=== PATIENT | female | born 1950 | race Caucasian/White ===

== ENCOUNTER 2024-05-05 08:21 | Outpatient (RCR) | payer OTHER, SELFPAY ==
[2024-05-05 08:38] VITALS: BP 160/55
[2024-05-05] MEDS: SODIUM BICARBONATE 1150 MEQ IV (09:02)
== END 2024-05-17 23:59 | disposition home or self-care (01) ==
LOC: OID 08:21
PROVIDERS: ATTENDING PHYSICIAN Surgery Vascular Surgery
DX: I71.40 Abdominal aortic aneurysm, without rupture, unspecified (principal); I48.91 Unspecified atrial fibrillation; I50.9 Heart failure, unspecified; Z92.89 Personal history of other medical treatment; Z79.01 Long term (current) use of anticoagulants; Z87.891 Personal history of nicotine dependence
CPT/HCPCS: 96365; 96366

== ENCOUNTER → 2024-05-05 09:29 | Outpatient (REF) | payer OTHER, SELFPAY | LOC: RAD 09:29 | PROVIDERS: ATTENDING PHYSICIAN Surgery Vascular Surgery; FAMILY PHYSICIAN Nurse Practitioner Adult Health | DX: I71.40 Abdominal aortic aneurysm, without rupture, unspecified (principal) | CPT/HCPCS: 74174; Q9967 ==

== ENCOUNTER 2024-07-04 06:09 | Inpatient (IN) | payer OTHER, SELFPAY ==
[2024-06-16 09:37] VITALS: BMI 36.1
[2024-06-16 10:16] LABS: % Basophils 0.6 % (0-2); % Eosinophils 5.8 % (0-6); % Immature Granulocytes 0.3 % (0-0.5); % Monocytes 6.7 % (1.7-9.3); % Neutrophils 63.6 % (42.2-75.2); Absolute Eosinophils 0.4 10^3/uL (0-0.7); Absolute Lymphocytes 1.5 10^3/uL (1.2-3.4); Absolute Monocytes 0.4 10^3/uL (0.1-0.6); Absolute Neutrophils 4.2 10^3/uL (1.4-6.5); Hemoglobin 11.7 g/dL (12.0-16.0); Mean Corp Hgb Conc. 32.5 g/dL (33.0-37.0); Mean Corpuscular Hgb 29.9 pg (27.0-31.0); Mean Corpuscular Volume 92.1 fL (81.0-99.0); Mean Platelet Volume 10.9 fL (7.4-10.4); Nucleated Red Blood Cells % 0 %; Platelet Count 186 10^3/uL (130-400); Red Blood Cell Count 3.91 10^6/uL (4.20-5.40); Red Cell Dist. Width 13.2 % (11.5-14.5); White Blood Cell Count 6.6 10^3/uL (4.8-10.8)
[2024-06-16 10:21] LABS: INR 1.19; PT 14.9 Sec (11.4-14.6)
[2024-06-16 10:22] LABS: APTT 30.1 Sec (23.4-35.0)
[2024-06-16 10:39] LABS: Blood Urea Nitrogen 32 mg/dl (7-17); Calcium 9.5 mg/dl (8.4-10.2); Carbon Dioxide 32 mmol/L (22-30); Chloride 102 mmol/L (98-107); Estimated Creatinine Clearance 51 ml/min; Glucose 96 mg/dl (70-99); Potassium 4.8 mmol/L (3.5-5.1); Sodium 143 mmol/L (135-145)
--- NOTE | 2024-06-26 10:45 | PTCARENOTE ---
Patients 06/16 Creat 1.1; GFR 52.40- Tona @ Dr. Esteban office notified
[2024-07-04] VITALS (9 sets, daily range): BP systolic 133–152; BP diastolic 50–61; BMI 34.9
--- NOTE | 2024-07-04 07:00 | HP.FOC2 ---
Focused History & Physical
Chief Complaint
HPI:
Chief Complaint: Juxtarenal abdominal aortic aneurysm
HPI / Indication for Planned Procedure: This is a 74-year-old female with known past medical history of juxtarenal abdominal aortic aneurysm who presents today for scheduled fenestrated stent grafting with Dr. Memo Rashid III. She denies recent
illness, trauma, hospitalization, or change in medication. She reports she is at her baseline health. We will proceed with scheduled fenestrated endovascular abdominal aortic aneurysm repair withZfen and bilateral percutaneous femoral access.
Relevant Past Medical History: Coronary Artery Disease (Nonobstructive CAD) and Other (Atrial fibrillation, chronic heart failure, hyperlipidemia, obstructive sleep apnea, hypertension, pulmonary hypertension, carotid atherosclerosis, spinal
stenosis of lumbar region, prediabetes)
Relevant Social History: Tobacco Use (Former smoker)
Relevant Family History: Positive for (ALS paternal side, leukemia maternal side, brother with MS, and diabetes)
Relevant Past Surgical History: Positive for (Hysterectomy, cholecystectomy, appendectomy, right knee replacement)
Review of Systems
Review of Pertinent Systems: All Systems Negative
Medication
See Medication form for detailed medications: Yes
Medication List (including Herbals & OTC):
apixaban 5 mg tablet (Eliquis) 5 mg PO BID 05/05/24
aspirin 81 mg tablet,delayed release 81 mg PO DAILY 05/05/24
cetirizine 10 mg tablet 10 mg PO DAILY 05/05/24
furosemide 20 mg tablet 20 mg PO DAILY 05/05/24
metoprolol succinate 25 mg tablet,extended release 24 hr 25 mg PO DAILY 05/05/24
nifedipine 30 mg tablet,extended release 24 hr 30 mg PO DAILY 05/05/24
pantoprazole 40 mg tablet,delayed release 40 mg PO DAILY 05/05/24
rosuvastatin 20 mg tablet 20 mg PO QPM 05/05/24
sotalol 80 mg tablet 40 mg PO BID 05/05/24
triamcinolone acetonide 0.025 % topical cream 1 applic topical BID PRN leg rash 05/05/24
lisinopril 40 mg tablet 40 mg PO DAILY 06/15/24
Medications Reviewed: Yes
Allergies and Reactions
Patient has Allergies: Yes
Noted Allergies and Reactions:
Allergy/AdvReac Type Severity Reaction Status Date / Time
Iodinated Contrast Media Allergy Unknown Anaphylaxis Verified 07/04/24 06:34
Sulfa (Sulfonamide Allergy Unknown Unknown Verified 07/04/24 06:34
Antibiotics)
Pertinent Physical Exam
All Other Systems: Negative
Head/Neck: Normal
Lungs: Normal (Bilateral lungs clear to auscultation)
Heart: Normal
Abdomen: Normal (Nontender, nondistended, rotund)
Extremities: Normal (Bilateral radial pulse +1 palpable, bilateral DP pulse +1 palpable)
Neurological: Normal
Diagnosis / Assessment
Diagnosis: 74-year-old female with juxtarenal abdominal aortic aneurysm
Plan / Procedure
Plan: Will proceed with scheduled fenestrated endovascular aortic aneurysm repair.
Anesthesia/Sedation to be done by Anesthesia Provider: Yes
[2024-07-04] MEDS: BACTROBAN NASAL 1 GRAM NASAL (07:03)
[2024-07-04] MEDS: NSS 500 IV (07:03)
--- NOTE | 2024-07-04 07:28 | W.SUR.PREOP ---
Pre-Operative Surgical Note
-
I have examined this patient prior to the performance of the scheduled procedure.
The patient's condition is unchanged from the time of the current History and
Physical and the patient is able to undergo the scheduled procedure.
[2024-07-04 09:02] LABS: ACT-LR - POC 255 Seconds (116-155)
[2024-07-04 10:03] LABS: ACT-LR - POC 244 Seconds (116-155)
[2024-07-04 10:56] LABS: ACT-LR - POC 287 Seconds (116-155)
[2024-07-04 11:40] LABS: Glucose - Point of Care 157 mg/dl (70-99)
--- NOTE | 2024-07-04 11:56 | OR.RPT ---
Operative Report
Operative Report
Date of Operation: 07/04/2024
Pre Op Diagnosis: Juxtarenal abdominal aortic aneurysm
Post Op Diagnosis: Juxtarenal abdominal aortic aneurysm
Procedure:
1.) Percutaneous fenestrated aortic stent graft repair of juxtarenal abdominal aortic aneurysm:
Ryanne P-94, large fenestration for SMA, bilateral renal fenestrations (main body left)
Ryanne D-2876 distal main body;
ZSLE 16-74 RIGHT iliac extension
ZSLE 13-74 LEFT iliac extension
2.) Bilateral renal artery stenting for fenestrated stent graft repair (6 mm x 22 mm iCasts bilaterally, post-dilated proximal to 10 mm)
3.) Intravascular lithotripsy to right common iliac artery stenosis to facilitate large sheath access and subsequent stent graft delivery (12 mm x 30 mm L6 shockwave)
4.) Introduce wire/catheter into aorta from bilateral femoral artery access
5.) Ultrasound-guided percutaneous femoral access, bilateral
6.) Pro-glide closure bilateral femoral artery access
Fluoroscopy:
57.6 minutes
2976 mGy
DAP: 703.34
Surgeon: Memo Rashid III, MD
Anesthesia: General
Complications: None
History and Indications for Procedure: Large juxtarenal abdominal aortic aneurysm.
Procedure in Detail: Hannah Gustafson was correctly identified and placed supine on the operating table. After adequate induction of anesthesia the abdomen, pelvis and bilateral groins were positioned, prepped and draped in the usual sterile fashion.
Preoperative antibiotics were administered. A timeout procedure was performed with the nursing and anesthesia staff confirming the patients identity as well as the nature and laterality of the procedure.
Under ultrasound guidance, bilateral femoral artery 5Fr sheath access was obtained using a micropuncture technique. The arteries were patent on ultrasound. Ultrasound images of the femoral arteries were saved to the medical record. A pre-close
technique was performed bilaterally with 2 offset Proglide closure devices. The sutures were secured and tucked under surgical towels for use at the end of the case. Bilateral 8 Fr sheaths were replaced over Bentson wires. The patient was
systemically heparinized.
From the right femoral access a KMP catheter and Bentson wire were advanced to the proximal descending thoracic aorta. The wire was exchanged out for a V18. Due to the heavily calcified nature of the right common iliac artery stenosis and in an
effort to modify the calcium to achieve maximum luminal gain with endovascular intervention I elected to proceed with intravascular lithotripsy. A 12 mm x 30 mm Shockwave balloon was placed across the calcified right common iliac artery stenosis
under roadmap guidance. Alternating rounds of lithotripsy pulse delivery at sub-nominal pressure and angioplasty at nominal pressure was performed across the stenosis. In between rounds of pulse delivery and angioplasty the balloon was deflated and
repositioned under roadmap guidance. All 300 pulses were delivered. Subsequent arteriogram demonstrated an excellent technical result with significant improvement in the appearance of the stenosis.The V18 wire was then exchanged out through the KMP
catheter for a Lunderquist wire. Under direct radiographic guidance from the right femoral access an 18 Fr [place] dry seal sheath was advanced over the Lunderquist wire into the distal abdominal aorta without any resistance or difficutly. From the
left femoral access a Bentson wire was advanced into the proximal descending thoracic aorta. The wire was exchanged out through a KMP catheter for a Lunderquist. A marker pigtail catheter was then placed for angiographic purposes through the dry
seal sheath.
The fenestrated stent graft (Zfen-P-2 -26-94) was opened and prepped on the back table. The stent was oriented in the proper position under radiographic guidance outside the body. While maintaining the proper orientation, the fenestrated main body
was advanced over the left femoral Lunderquist wire under radiographic guidance and placed in the approximate position. An aortogram was performed and identified the origins of the renal arteries bilaterally. The fenestrated main body was then
positioned more precisely. The Zfen main body was carefully unsheathed to the distal end of the stent.
The pigtail catheter was pulled down into the distal abdominal aorta. The fenestrated main body was selected with a Glidewire and KMP catheter. The KMP catheter was advanced to the proximal fenestrated main body and the wire exchanged for a
Lunderquist. The dilator for the 18 [place] dry seal sheath was reinserted and the sheath with the dilator were advanced into the fenestrated main body. Using a Van Schie 4 catheter and a glidewire the left renal artery was accessed. The Glidewire
was exchanged out for a Branch wire. A 6 Fr 45 cm [place] sheath was advanced through the left renal fenestration and into the [place] renal artery. We performed an arteriogram to confirm proper positioning in the renal artery. A 6 mm x 22 mm iCast was
then advanced over the wire and placed across the fenestration still inside the sheath.
A separate access in the 18 Fr sheath was obtained. Using a Van Schie 4 catheter and a glidewire the right renal artery was accessed. The Glidewire was exchanged out for a Branch wire. We performed an arteriogram to confirm proper positioning in the
renal artery. A 7 Fr 55 cm sheath was advanced through the right renal fenestration and into the [place] renal artery. A 6 mm x 22 mm iCast was then advanced over the wire and placed across the fenestration still inside the sheath.
Following successful cannulation of the renal artery fenestrations I then completed the deployment of the fenestrated main body with release of the diameter reducing wires and release of the top cap. The top cap was then carefully recaptured under
radiographic guidance and the delivery system carefully removed over the Lunderquist wire.
A Coda balloon was then inserted and the proximal seal zones of the Zfen main body were profiled with the Glen sheaths in position. The Coda was then removed over the wire.
Deployment of the iCast stents across the renal fenestrations were completed one at a time as follows: The renal fenestration markers on each side were 'closed' by adjusting the C-arm obliquity. One at a time the sheaths were then retracted to fully
expose the iCast stent. The stent was properly positioned across the fenestration under magnification views and deployed by inflating the balloon to nominal pressure. The sheath was re-advanced into the iCast to 'swallow' the balloon as it was
deflated. A 10 mm x 20 mm angioplasty balloon was then positioned in the proximal portion of the iCast. The sheath was retracted and the balloon inflated while maintaining gentle forward pressure to post-dilate the proximal end of the iCast. The
sheath was once again re-advanced into the stent by swallowing the balloon as it deflated. The sheaths were each left in place inside the iCasts while the distal main body was introduced.
The distal main body (Zfen-D-12 -28-76) was prepped on the back table and brought to the field. The device was oriented outside the body under radiographic guidance. Over the Lunderquist wire on the left the distal main body was introduced carefully
under radiographic guidance and positioned properly. The renal artery sheaths and wires bilaterally were then removed one at a time. The distal main body was then deployed down to the contralateral gate.
From the right femoral sheath, the contralateral gate was successfully cannulated using a KMP catheter and a Glidewire. I confirmed proper position within the gate and main body by spinning the catheter followed by exchanging out for a pigtail
catheter and while formed pushing up on the pigtail catheter while the proximal constraining mechanism was released. After confirming the gate cannulation I advanced the catheter and wire into the proximal descending thoracic aorta and then
exchanged out for a Lunderquist. A marker pigtail catheter was placed over the Lunderquist and a retrograde sheath arteriogram was performed. I measured the length for the iliac extension and the iliac bifurcation was clearly marked. The pigtail was
removed and over the Lunderquist wire the contralateral limb extension (ZSLE 16-74) was advanced into the proper position with adequate overlap and preservation of the iliac bifurcation. The stent was deployed without difficulty.
I then completed the deployment of the distal main body. The delivery system was carefully removed over the wire under radiographic guidance. A retrograde sheath arteriogram was performed on the ipsilateral side. Over the Lunderquist wire the
ipsilateral limb extension was placed (ZSLE 13-74). Proper overlap was obtained and the stent was deployed without difficulty. The delivery system was then removed over the wire.
A Coda balloon was then advanced one side at a time. The overlap between the fenestrated main body and the distal main body was profiled with the Coda. Both iliac limbs were also profiled including the overlap and the distal seal zones bilaterally.
A pigtail catheter was placed once again. Stiff wires were removed. A completion aortogram demonstrated an excellent technical result. There was brisk flow through the aortic stent and iliac limbs. The renal arteries/stents were widely patent
bilaterally. The superior mesenteric artery filled briskly and was widely patent. The iliac bifurcations were preserved bilaterally. There was a faint late type II endoleak identified which appeared to be coming from a lumbar branch.
Satisfied with this result we then concluded the procedure. The Proglide sutures were secured bilaterally after removing the sheaths and wires. Protamine was administered. Additional pressure was applied to the puncture sites bilaterally for 10
minutes. Hemostasis was achieved bilaterally.
Sterile dressings were applied.
The patient tolerated the procedure well and was taken to the PACU in stable condition.
Attestation: I was present and responsible for all documented portions of the above procedure.
Memo Rashid III, MD
[facility] Vascular Surgery
[phone] (cell)
[2024-07-04 12:02] LABS: Hematocrit 34.4 % (37.0-47.0); Hemoglobin 11.4 g/dL (12.0-16.0); Mean Corp Hgb Conc. 33.1 g/dL (33.0-37.0); Mean Corpuscular Hgb 30.7 pg (27.0-31.0); Mean Corpuscular Volume 92.7 fL (81.0-99.0); Mean Platelet Volume 10.4 fL (7.4-10.4); Platelet Count 167 10^3/uL (130-400); Red Blood Cell Count 3.71 10^6/uL (4.20-5.40); Red Cell Dist. Width 12.7 % (11.5-14.5)
[2024-07-04 12:13] LABS: APTT 27.9 Sec (23.4-35.0); INR 1.28; PT 15.8 Sec (11.4-14.6)
[2024-07-04 12:17] LABS: Blood Urea Nitrogen 31 mg/dl (7-17); Calcium 8.8 mg/dl (8.4-10.2); Carbon Dioxide 24 mmol/L (22-30); Chloride 105 mmol/L (98-107); Estimated Creatinine Clearance 62 ml/min; Glucose 160 mg/dl (70-99); Potassium 5.1 mmol/L (3.5-5.1); Sodium 139 mmol/L (135-145); eGFR > 60.00
[2024-07-04] MEDS: ROXICODONE 5 MG PO ×2 (12:50→20:24)
[2024-07-04] MEDS: NSS IV ×2 (12:52→13:18)
[2024-07-04] MEDS: NSS 1000 IV ×2 (13:00→23:50)
--- NOTE | 2024-07-04 13:00 | PTCARENOTE ---
Received pt from PACU via bed. Pt is awake and alert.Speech is appropriate.+MOORE.c/o 8/10 low back pain related to flat position.Medicated with Oxycodone as requested.SB noted.Left A Line intact,zeroed and placed at mid axillary.+ Doppler DP pulse
BL.IVF infusing.O2 3l NC.POX 97%Decreased breath sounds bibasilar.Lunch ordered.Rashid draining yellow urine.BL groin sites intact with dermabond.No drainage noted.Plan of care discussed.
--- NOTE | 2024-07-04 13:32 | CON.INTV ---
Consultation
Consultation Request
Date/Time Consultation Requested: 07/04/2024-1 PM
Date/Time Consultation Performed: 07/04/2024-1:30 PM
Requesting Provider: Vascular surgery
Performing Provider: Dr. Zarco
Reason for Consultation: Postoperative critical care management
Medical History
-
Chief Complaint: PAD
History of Present Illness:
74-year-old female with a history of nonobstructive CAD, atrial fibrillation, chronic CHF, hyperlipidemia, hypertension, YANY, pulmonary hypertension, prediabetes who is a former smoker who quit 25 years ago found to have AAA and underwent
endovascular aortic aneurysm repair-firewall administrator consulted for postoperative critical care management 07/04/2024. Patient is seen postoperatively. She does not complain of any shortness of breath, chest pain, abdominal pain, productive cough,
pleurisy, hemoptysis, nausea, vomiting, leg swelling but does complain of chronic back pain.
Past Medical History
Past Medical History: None (Hypertension. Hyperlipidemia. Juxtarenal AAA. CAD-nonobstructive. Atrial fibrillation. Chronic CHF. YANY not on CPAP. Carotid atherosclerosis. Spinal stenosis. Prediabetes. Hysterectomy. Cholecystectomy.
Appendectomy. Right knee replacement.)
Social History
Tobacco: Former Smoker ([id number]-dxmp-[id number]-quit 25 years ago)
Family History
Family History: Other (ALS paternal side. Leukemia maternal side. Brother with MS and diabetes.)
Allergies / Home Medications
Allergies
Allergy/AdvReac Type Severity Reaction Status Date / Time
Iodinated Contrast Media Allergy Unknown Anaphylaxis Verified 07/04/24 06:34
Sulfa (Sulfonamide Allergy Unknown Unknown Verified 07/04/24 06:34
Antibiotics)
Home Medications
�Medication �Instructions �Recorded �Confirmed �Last Taken �Type
apixaban 5 mg tablet (Eliquis) 5 mg PO BID Blood Clot 05/05/24 07/04/24 06/29/24 00:00 History
Prevention/Tx
aspirin 81 mg tablet,delayed 81 mg PO DAILY Blood Clot 07/07/04/24 07/04/24 05:00 History
release Prevention/Tx
cetirizine 10 mg tablet 10 mg PO DAILY Allergies 05/05/24 07/04/24 07/03/24 09:00 History
furosemide 20 mg tablet 20 mg PO DAILY Fluid 05/05/24 07/04/24 07/03/24 06:00 History
Retention/Swelling
metoprolol succinate 25 mg 25 mg PO DAILY Blood Pressure 05/05/24 07/04/24 07/01/24 08:00 History
tablet,extended release 24 hr
nifedipine 30 mg tablet,extended 30 mg PO DAILY Blood Pressure 05/05/24 07/04/24 07/04/24 05:00 History
release 24 hr
pantoprazole 40 mg tablet,delayed 40 mg PO DAILY Gastrointestinal 05/05/24 07/04/24 07/03/24 08:00 History
release Issue
rosuvastatin 20 mg tablet 20 mg PO QPM High Cholesterol 05/05/24 07/04/24 07/03/24 20:00 History
sotalol 80 mg tablet 40 mg PO BID Arrhythmia 05/05/24 07/04/24 07/03/24 20:00 History
triamcinolone acetonide 0.025 % 1 applic topical BID PRN leg rash 05/05/24 07/04/24 06/30/24 08:00 History
topical cream
lisinopril 40 mg tablet 40 mg PO DAILY Blood Pressure 06/15/24 07/04/24 07/04/24 05:00 History
diphenhydramine HCl 50 mg capsule 50 mg NOW 07/04/24 07/04/24 07/04/24 05:30 History
Review of Systems
-
Unable to Obtain full review of systems at this time due to: Other (Per HPI)
Vitals / Labs / Diagnostic Testing
Vital Signs
Temp Pulse Resp BP Pulse Ox
97.7 F 53 12 149/55 94
07/04/24 12:30 07/04/24 12:45 07/04/24 12:45 07/04/24 12:30 07/04/24 12:45
Lab Data
07/04/24 11:42
07/04/24 11:43
Laboratory Results
07/04/24
11:43
PT 15.8 H
INR 1.28
APTT 27.9
Diagnostic Testing:
Physical Exam
-
Exam:
Well-nourished and well-developed in no apparent distress
HEENT-atraumatic, normocephalic
Neck-supple, no JVD, no bruit
Heart-regular rate and rhythm-no murmurs, rubs or gallops
Chest-clear to auscultation, no wheezes, crackles
Back-no tenderness
Abdomen-soft, nontender, nondistended, no hepatosplenomegaly
Extremities-no cyanosis, clubbing, edema and good peripheral pulses
Integument-intact, no rashes, lesions or ecchymosis
Neurology-alert and oriented, nonfocal motor and sensory exam
Assessment
-
74-year-old female with a history of nonobstructive CAD, atrial fibrillation, chronic CHF, hyperlipidemia, hypertension, YANY, pulmonary hypertension, prediabetes who is a former smoker who quit 25 years ago found to have AAA and underwent
endovascular aortic aneurysm repair-firewall administrator consulted for postoperative critical care management 07/04/2024.
Juxtarenal AAA
Status post endovascular fenestrated stent graft aortic aneurysm repair-Dr. Rashid 07/04/2024
Mild uoqwai-gdszrkrgms-jzrfdmpeai 11.4
Hyperglycemia-blood sugar 160
Conditions present prior to admission:
Hypertension.
Hyperlipidemia.
Juxtarenal AAA.
CAD-nonobstructive.
Atrial fibrillation.
Chronic CHF.
YANY not on CPAP.
Carotid atherosclerosis.
Spinal stenosis.
Prediabetes.
Hysterectomy. Cholecystectomy. Appendectomy. Right knee replacement.
Plan
Postoperative surgical intensive care unit monitoring
Supplemental oxygen as needed
Incentive spirometry
Aspiration precautions
Nebulizers if needed-currently not bronchospastic
Neuro and vascular checks per protocol
Vascular surgery following-correspondence and operative notes reviewed
Monitor blood sugar
Insulin supplementation as needed
Monitor hemoglobin
Transfuse if needed
DVT prophylaxis
Early nutrition
Early mobilization
The patient states she was diagnosed with obstructive sleep apnea through pk Larson in 2022-was preparing for knee surgery and never obtained CPAP
We recommend outpatient sleep disorders qemqhz-pu-[id number] new home sleep study with treatment options reviewed thereafter-local options will be provided at time of discharge
Critical care statement: A total of 45 minutes of critical care time was provided for this patient today. This includes management of unstable vital signs, evaluation of the patient at bedside, reviewing the patient's pertinent medical records
including radiographs, microbiology, laboratory evaluations, and discussion with primary team, consultants, pharmacy, nutrition, physical therapy, case management, charge nurse, critical care nursing, and respiratory therapy.
Diagnostic data:
Chest x-ray 06/16/2024-NAD
CT abdomen and pelvis 05/05/2024-diffuse atherosclerotic disease of the abdominal aorta with a 1 cm saccular aneurysm of the abdominal aorta just below the origins of the left renal artery and a fusiform aneurysmal measuring 4.5 cm involving the
infrarenal abdominal aorta, mild hepatomegaly, bilateral adrenal nodules likely representing adenomas
Data Reviewed
-
EKG: Report reviewed by me
Radiology: Report reviewed by me
CT Scan: Report reviewed by me
Medical Tests (Nuc Med, Echo etc): Report reviewed by me
Labs: Labs reviewed by me
Old Records: Reviewed
Critical Care Time (in minutes): 45
[2024-07-04 13:34] LABS: Magnesium 2.1 mg/dl (1.6-2.3)
--- NOTE | 2024-07-04 16:48 | PTCARENOTE ---
Pt assessed.No change in assessment noted.Tolerated lunch.hob at 29 degrees.
--- NOTE | 2024-07-04 17:15 | PTCARENOTE ---
Heart rate SB mid 40's.BP 133/49.Pt awake and alert.Vascular POLYMER SPECIALIST made aware.Sotalol parameters added by POLYMER SPECIALIST.
[2024-07-04] MEDS: TYLENOL 650 MG PO (17:23)
[2024-07-04] MEDS: CRESTOR 20 MG PO (17:24)
--- NOTE | 2024-07-04 17:41 | PTCARENOTE ---
PM care given.Pt assisted with repositioning.c/o 04/26 low bask pain.Requested and received Tylenol for pain.Assessment unchanged.
--- NOTE | 2024-07-04 20:00 | PTCARENOTE ---
gear generator set up operator, aaox3, SB HR 50s. IV x 2 WNL- IVF infusing per work list. L radl AL WNL. 3LNCC Sat 99%. NV checks as documented- WNL. Rashid catheter draining adequate amt yellow urine. prn oxycodone for lower back pain. POC discussed, call escobar with
pt.
[2024-07-04] MEDS: HEPARIN 5000 UNITS SC (20:16)
[2024-07-04] MEDS: BETAPACE PO (20:16)
[2024-07-05] VITALS (7 sets, daily range): BP systolic 104–159; BP diastolic 41–69; BMI 35.0
--- NOTE | 2024-07-05 | PTCARENOTE ---
no changes in pt assessment. pt assisted with repositioning.
[2024-07-05] MEDS: ROXICODONE 5 MG PO ×4 (02:17→21:01)
--- NOTE | 2024-07-05 03:00 | DOWNTIME ---
There was a Decl[facility] Client Outside Rigger Downtime on 07/05/2024 from 0100 to 07/05/2024 at 0300. Downtime documentation of patient's care, including medication administrations, has been reconciled in the electronic record per guidelines. Refer to the
patient's paper chart under the miscellaneous tab to see printed paper medication records and downtime forms.
[2024-07-05 05:10] LABS: Hematocrit 29.2 % (37.0-47.0); Hemoglobin 9.5 g/dL (12.0-16.0); Mean Corp Hgb Conc. 32.5 g/dL (33.0-37.0); Mean Corpuscular Hgb 30.4 pg (27.0-31.0); Mean Corpuscular Volume 93.6 fL (81.0-99.0); Mean Platelet Volume 10.6 fL (7.4-10.4); Platelet Count 163 10^3/uL (130-400); Red Blood Cell Count 3.12 10^6/uL (4.20-5.40); Red Cell Dist. Width 12.9 % (11.5-14.5); White Blood Cell Count 11.1 10^3/uL (4.8-10.8)
[2024-07-05 05:17] LABS: APTT 26.4 Sec (23.4-35.0)
[2024-07-05 05:30] LABS: Blood Urea Nitrogen 31 mg/dl (7-17); Calcium 8.5 mg/dl (8.4-10.2); Carbon Dioxide 27 mmol/L (22-30); Chloride 105 mmol/L (98-107); Estimated Creatinine Clearance 50 ml/min; Glucose 116 mg/dl (70-99); Potassium 4.9 mmol/L (3.5-5.1); Sodium 141 mmol/L (135-145)
--- NOTE | 2024-07-05 06:00 | PTCARENOTE ---
no changes in pt assessment.
--- NOTE | 2024-07-05 07:00 | PTCARENOTE ---
Handoff pulse checks. Pt awake and alert. Doppler signal easily obtained on the right foot, weaker on the left foot. Denies any numbness or tingling. Feet equally warm and pink. Right hand #22g IV with 0.9NSS@50ml/hr. Left radial arterial line
transduced and monitored. Dressing CDI. Bilateral groin sites TL. Right groin with scant ecchymosis. 2 liters nasal cannula 96% pulse ox. RA saturation 91-93%. Lungs CTA. +BSX4. Good appetite. +Flatus. Instructed on the adams of care to remove
arterial line, cap IVF, OOB and ambulate. She verbalized her understanding.
--- NOTE | 2024-07-05 07:38 | W.PN.INTV ---
Today's Communication / Plan
Recommendations
Wean FiO2
Increase activity
Discontinue arterial line and Rashid catheter
Transfer out of ICU-call pulmonary if respiratory issues arise
Assessment
-
74-year-old female with a history of nonobstructive CAD, atrial fibrillation, chronic CHF, hyperlipidemia, hypertension, YANY, pulmonary hypertension, prediabetes who is a former smoker who quit 25 years ago found to have AAA and underwent
endovascular aortic aneurysm repair-air brush operator consulted for postoperative critical care management 07/04/2024.
Juxtarenal AAA
Status post endovascular fenestrated stent graft aortic aneurysm repair-Dr. Rashid 07/04/2024
Mild mogusc-cxdkdpiuym-auhgbvygbk 11.4
Hyperglycemia-blood sugar 160
Conditions present prior to admission:
Hypertension.
Hyperlipidemia.
Juxtarenal AAA.
CAD-nonobstructive.
Atrial fibrillation.
Chronic CHF.
YANY not on CPAP.
Carotid atherosclerosis.
Spinal stenosis.
Prediabetes.
Hysterectomy. Cholecystectomy. Appendectomy. Right knee replacement.
Plan
Hemodynamically and neurovascularly intact
Wean supplemental oxygen
Incentive spirometry encourage
Aspiration precautions
Monitor hemoglobin
Transfuse if needed
Monitor blood sugars
Insulin supplementation if needed
Neuro and vascular checks per protocol also continue
Vascular surgery closely
DVT prophylaxis recommended
Nutrition
Increase activity/physical therapy
The patient states she was diagnosed with obstructive sleep apnea through [facility] in 2022-was preparing for knee surgery and never obtained CPAP
We recommend outpatient sleep disorders [id number] new home sleep study with treatment options reviewed thereafter-local options will be provided at time of discharge
Patient can be transferred out of ICU-call pulmonary if respiratory issues arise
Reviewed the patient's pertinent medical records including radiographs, microbiology, laboratory evaluations, and discussion with primary team, consultants, pharmacy, nutrition, physical therapy, case management, charge nurse, critical care
nursing, and respiratory therapy.
Diagnostic data:
Chest x-ray 06/16/2024-NAD
CT abdomen and pelvis 05/05/2024-diffuse atherosclerotic disease of the abdominal aorta with a 1 cm saccular aneurysm of the abdominal aorta just below the origins of the left renal artery and a fusiform aneurysmal measuring 4.5 cm involving the
infrarenal abdominal aorta, mild hepatomegaly, bilateral adrenal nodules likely representing adenomas
Subjective Dataa
Subjective Data
Date of Service:
Date of Service: July 05, 2024
Chief Complaint: Moving Consultant Follow Up and Pulmonary Follow Up
Subjective:
Doing well overnight, hemodynamically stable, neurovascularly intact, no complaints of shortness of breath, chest pain or abdominal pain
Review of Systems
General: Other (Per HPI)
Objective Data
Data Reviewed
Vital Signs / I&O / Oxygen:
Vital Signs
Temp Pulse Resp BP Pulse Ox
97.9 F 63 18 133/61 98
07/05/24 04:45 07/05/24 06:30 07/05/24 06:30 07/04/24 13:30 07/05/24 06:30
Intake and Output
07/04/24 07/05/24 07/06/24
06:59 06:59 06:59
Intake Total 2039 / 204
Output Total 1115 / 1115
Balance 925 / 925
SaO2 98
Nasal Cannula flow liters per 2
minute
Physical Exam
General: Respiratory Distress (n) and Comfortable
HEENT: Normocephalic, Anicteric and Moist Mucous Membranes
Cardiovascular: Regular Rhythm and Murmur
Respiratory: Wheeze (n), Crackles (n), Rhonchi (n), Non-Labored Respirations, Accessory Resp Muscle Use (n) and Stridor
GI: Soft, Non Distended and Non Tender
Neurology: Awake, Alert and No Motor Deficits
Skin: Warm, Good Color, Cyanosis (n), Jaundice (n) and Rash
Labs/Micro/Reports
Lab Data
07/05/24 04:43
07/05/24 04:43
Laboratory Results
07/04/24 07/05/24
11:43 04:43
PT 15.8 H 14.0
INR 1.28 1.10
APTT 27.9 26.4
--- NOTE | 2024-07-05 07:57 | W.PN.VS ---
Addendum entered and electronically signed by Erik Giles MD 07/05/24 09:32:
Seen and examined with CLAUDIA Pryor. Agree with findings as noted below. Patient without significant complaints this morning. No abdominal pain, no postprandial abdominal pain. Abdomen soft, nondistended, nontender. Groins bilaterally flat small
incisions clean dry and intact bilaterally. Feet are warm with palpable pedal pulses. Labs reviewed. Plan/as discussed and noted below.
Original Note:
Today's Communication / Plan
-
Patient seen and examined at bedside with Dr. Erik Giles, below plan reviewed with attending
Assessment/Plan
-
Assessment: 74-year-old female POD #1 FE
Plan:
Discontinue IV fluid
Discontinue arterial line
Discontinue Rashid catheter
Out of bed to chair with progression to ambulation as tolerated
Given patient's hesitation with any discharge today as she lives alone we will likely downgrade to telemetry if she continues to progress well with plan for discharge tomorrow
Continue antiplatelet of aspirin 81 mg p.o. daily with her home anticoagulation
Subjective Data
-
Date of Service: July 05, 2024
Patient seen and examined at bedside, offers no complaints. Denies nausea, vomiting, fever, and chills. Reports tolerating p.o. diet. Reports very well-managed pain at bilateral groin puncture sites. Does report hesitation for a possible
discharge today because she lives alone.
Objective Data
-
Vital Signs
Temp Pulse Resp BP Pulse Ox
97.9 F 63 18 133/61 98
07/05/24 04:45 07/05/24 06:30 07/05/24 06:30 07/04/24 13:30 07/05/24 06:30
Intake and Output
07/04/24 07/05/24 07/06/24
06:59 06:59 06:59
Intake Total 2039
Output Total 1114
Balance 925 / 925
Intake:
Oral fluids 780 / 780
IV fluids (Total) 1260 / 1260
Nss 1,000 ml @ 80 mls/hr IV . 1260 / 1260
[id number] CHUCK Rx#:[id number]
Output:
Urine, Rashid 1114
Lab Results
07/05/24 04:43
07/05/24 04:43
Calcium 8.5 mg/dl (8.4-10.2) 07/05/24 04:43
Magnesium 2.1 mg/dl (1.6-2.3) 07/04/24 11:43
Physical Exam
-
Awake alert oriented x 3, no apparent distress, resting bed comfortably
No tachycardia
No dyspnea
ABD rotund, nontender, nondistended
Bilateral groin puncture sites CDI, no evidence of hematoma, all surrounding compartments soft
Bilateral feet warm
Bilateral DP +1 palpable
Rashid draining clear yellow urine
[2024-07-05] MEDS: BETAPACE PO ×2 (08:15→20:16)
[2024-07-05] MEDS: ZYRTEC 10 MG PO (08:17)
[2024-07-05] MEDS: PROTONIX 40 MG PO (08:17)
[2024-07-05] MEDS: ASPIR LOW (ENTERIC COATED) 81 MG PO (08:17)
[2024-07-05] MEDS: LASIX 20 MG PO (08:18)
[2024-07-05] MEDS: PROCARDIA XL (EXTENDED RELEASE) 30 MG PO (08:19)
[2024-07-05] MEDS: ZESTRIL 40 MG PO (08:20)
[2024-07-05] MEDS: ELIQUIS 5 MG PO ×2 (08:24→19:50)
--- NOTE | 2024-07-05 08:45 | PTCARENOTE ---
Left radial arterial line removed as ordered. Pressure held until hemostasis, gauze dressing secured with tegaderm applied. She is aware to notify RN if dressing becomes bloody or she experiences numbness or tingling. She denies and numbness or
tingling.
[2024-07-05] MEDS: TOPROL XL PO (11:50)
--- NOTE | 2024-07-05 11:50 | CM ---
Met with Hannah in ICU. She had planned surgery yesterday to repair AAA. She lives alone in home in [place]. She has 3 very supportive friends, one a nurse. She has one step to enter her one level home. SHe uses cane in community. SHe also
has rolling walker and shower seat. SHe has had [facility] in past after TKR.
PCP Jalil Hodge
Pharmacy: [facility].
SHe has no history of SNF .
PLAN: home with support from her friends.
--- NOTE | 2024-07-05 13:41 | PTCARENOTE ---
Assisted pt to bed. She was in the chair for several hours and ambulated several times to BR to void. Right wrist with gross ecchymosis, which appears to be more swollen than earlier this morning. Vanessa VANG notified via TT. No numbness or
tingling reported hands equally warm with pulses present.
--- NOTE | 2024-07-05 14:47 | W.PN.UPDATE ---
Update Note
Progress Note Update
Informed by RN of increased swelling and ecchymosis at Right wrist, came to bedside to assess. Pt AAOx3, NAD, right wrist with scant edema at forearm, no edema at wrist, area of ecchymosis noted at wrist, +2 palpable radial pulse; all compartments
soft, no evidence of hematoma. Will obtain right wrist/radial US to rule out pseudoaneurysm or concerns for active bleeding, although physial exam suggest low suspicion for active bleeding. Reviewed PE and plan with attending Dr. Erik Giles who
agrees with plan.
--- NOTE | 2024-07-05 16:26 | PTCARENOTE ---
Ambulated to BR 1 assist. C/O back pain. Medicated as ordered. Safe environment maintained.
[2024-07-05] MEDS: CRESTOR 20 MG PO (18:07)
--- NOTE | 2024-07-05 20:22 | PTCARENOTE ---
assessment as documented, neurovascular checks intact. pt ambulated to bathroom prior to transfer to floor. report given to [facility]south.
--- NOTE | 2024-07-05 21:30 | PTCARENOTE ---
Received patient from ICU. AAOx3. Stable vitals. Bilateral groin sites Intact/ ecchymotic/ DIGITAL MEDIA MANAGER. Right radial site- Ecchymotic/ Intact. Ambulated to bed with one assist with cane. SB in 50s on tele. POC reviewed with patient.
[2024-07-06] VITALS (7 sets, daily range): BP systolic 105–140; BP diastolic 51–85; PULSE 82; BMI 36.3
[2024-07-06 06:48] LABS: Blood Urea Nitrogen 33 mg/dl (7-17); Calcium 8.4 mg/dl (8.4-10.2); Carbon Dioxide 25 mmol/L (22-30); Chloride 105 mmol/L (98-107); Estimated Creatinine Clearance 57 ml/min; Glucose 90 mg/dl (70-99); Potassium 4.6 mmol/L (3.5-5.1); Sodium 142 mmol/L (135-145); eGFR 58.75
--- NOTE | 2024-07-06 07:42 | W.PN.VS ---
Addendum entered and electronically signed by Erik Giles MD 07/06/24 07:46:
Seen and examined with CLAUDIA Wisdom. Agree with findings as noted below. Patient notes feeling need to move bowels but unable to do so so far. Voiding spontaneously. No abdominal pain but she notes back pain laying in bed.
On exam/she is awake and alert. Breathing is unlabored. Abdomen is soft, nondistended, nontender. Groin small incisions bilaterally clean dry and intact. No hematomas. Feet are both warm well-perfused. Palpable pedal pulses right side stronger
than left. Plan/as discussed and noted below. Increase activity. If back pain not improved once out of bed and moving, will consider CT scan imaging.
Original Note:
Today's Communication / Plan
-
Seen and assessed with Dr. Giles
Assessment/Plan
-
Assessment: 74-year-old female POD #2 FEVAR
Plan:
Out of bed/ambulate as much as possible
Physical therapy
Colace, [facility] for constipation
DC planning
Subjective Data
-
Date of Service: July 06, 2024
Patient seen at bedside same Dr. Giles. Patient complains of lower back pain while laying in bed. Patient also complains of constipation. No events overnight
Objective Data
-
Vital Signs
Temp Pulse Resp BP Pulse Ox
98.1 F 70 18 140/85 96
07/06/24 03:10 07/06/24 03:10 07/06/24 03:10 07/06/24 03:10 07/06/24 03:10
Intake and Output
07/05/24 07/06/24 07/07/24
06:59 06:59 06:59
Intake Total 2039 / 2119 1040 / 1040
Output Total 1115 / 1115 125 / 125
Balance 925 / 1005 915 / 915
Intake:
Oral fluids 780 / 780 960 / 960
IV fluids (Total) 1260 / 1340 80 / 80
Nss 1,000 ml @ 80 mls/hr IV . 1260 / 1340 80 / 80
[id number] [facility]UCK Rx#:[id number]
Output:
Urine, Rashid 1115 / 1115 125 / 125
Other:
Number of approximated SMALL 1
amounts of urine
Number of approximated MODERATE 1
amounts of urine
Number of approximated LARGE 2
amounts of urine
Lab Results
07/06/24 04:53
Calcium 8.4 mg/dl (8.4-10.2) 07/06/24 04:53
Magnesium 2.1 mg/dl (1.6-2.3) 07/04/24 11:43
Physical Exam
-
Awake alert oriented x 3, no apparent distress, resting bed comfortably
No tachycardia
No dyspnea
ABD rotund, nontender, nondistended
Bilateral groin puncture sites CDI, no evidence of hematoma, all surrounding compartments soft
Bilateral feet warm
Bilateral DP +1 palpable
[2024-07-06 08:09] LABS: Hematocrit 28.4 % (37.0-47.0); Mean Corp Hgb Conc. 31.7 g/dL (33.0-37.0); Mean Corpuscular Hgb 29.2 pg (27.0-31.0); Mean Corpuscular Volume 92.2 fL (81.0-99.0); Red Blood Cell Count 3.08 10^6/uL (4.20-5.40); Red Cell Dist. Width 13.1 % (11.5-14.5); White Blood Cell Count 6.5 10^3/uL (4.8-10.8)
[2024-07-06] MEDS: ASPIR LOW (ENTERIC COATED) 81 MG PO (08:34)
[2024-07-06] MEDS: PROTONIX 40 MG PO (08:34)
[2024-07-06] MEDS: COLACE 100 MG PO ×2 (08:35→20:27)
[2024-07-06] MEDS: ZYRTEC 10 MG PO (08:36)
[2024-07-06] MEDS: ELIQUIS 5 MG PO ×2 (08:36→20:29)
[2024-07-06] MEDS: ROXICODONE 5 MG PO ×2 (08:49→23:14)
[2024-07-06] MEDS: PROCARDIA XL (EXTENDED RELEASE) 30 MG PO (08:50)
[2024-07-06] MEDS: TOPROL XL 25 MG PO (08:51)
[2024-07-06] MEDS: BETAPACE 40 MG PO (08:51)
[2024-07-06] MEDS: LASIX 20 MG PO (08:51)
[2024-07-06] MEDS: ZESTRIL 40 MG PO (08:52)
[2024-07-06] MEDS: MIRALAX 17 GRAMS PO (08:52)
[2024-07-06] MEDS: CRESTOR 20 MG PO (17:13)
[2024-07-06] MEDS: BETAPACE PO (20:28)
[2024-07-07 03:05] VITALS: BP 128/57
[2024-07-07 06:00] VITALS: BMI 36.0
[2024-07-07 07:45] VITALS: BP 140/46
--- NOTE | 2024-07-07 07:58 | W.PN.VS ---
Addendum entered and electronically signed by Erik Giles MD 07/07/24 08:56:
Seen and examined with CLAUDIA Pryor earlier this a.m. Agree with findings as noted below. Patient without any significant complaints except that she has not moved her bowels. No abdominal pain. No back pain currently. Exam is stable. Abdomen is
soft, nondistended, nontender. Small groin incisions bilaterally clean dry and intact, no hematomas bilateral groins. Feet warm and well-perfused. Plan/as discussed and noted below.
Original Note:
Today's Communication / Plan
-
Seen and assessed with Dr. Giles
Assessment/Plan
-
Assessment: 74-year-old female POD #3
Plan:
Enema per patient request
Okay for DC when home health is set up
Subjective Data
-
Date of Service: July 07, 2024
Patient seen for send seen with Dr. Giles. Patient resting comfortably, denies back pain at this time. Still has not had a bowel movement
Objective Data
-
Vital Signs
Temp Pulse Resp BP Pulse Ox
97.5 F 62 18 128/57 96
07/07/24 03:05 07/07/24 03:05 07/07/24 03:05 07/07/24 03:05 07/07/24 03:05
Intake and Output
07/06/24 07/07/24 07/08/24
06:59 06:59 06:59
Intake Total 1040 / 1040 480 / 480
Output Total 125 / 125
Balance 915 / 915 480 / 480
Intake:
Oral fluids 960 / 960 480 / 480
IV fluids (Total) 80 / 80
Nss 1,000 ml @ 80 mls/hr IV . 80 / 80
[id number] CHUCK Rx#:[id number]
Output:
Urine, Rashid 125 / 125
Other:
Number of approximated SMALL 1
amounts of urine
Number of approximated MODERATE 1 2
amounts of urine
Number of approximated LARGE 2
amounts of urine
Lab Results
07/06/24 04:53
07/06/24 04:53
Calcium 8.4 mg/dl (8.4-10.2) 07/06/24 04:53
Magnesium 2.1 mg/dl (1.6-2.3) 07/04/24 11:43
Physical Exam
-
Awake alert oriented x 3, no apparent distress, resting bed comfortably
No tachycardia
No dyspnea
ABD rotund, nontender, nondistended
Bilateral groin puncture sites CDI, no evidence of hematoma, all surrounding compartments soft
Bilateral feet warm
Bilateral DP +1 palpable
[2024-07-07] MEDS: PROTONIX 40 MG PO (07:59)
[2024-07-07] MEDS: PROCARDIA XL (EXTENDED RELEASE) 30 MG PO (07:59)
[2024-07-07] MEDS: ZYRTEC 10 MG PO (07:59)
[2024-07-07] MEDS: BETAPACE 40 MG PO ×2 (07:59→20:10)
[2024-07-07] MEDS: LASIX 20 MG PO (07:59)
[2024-07-07] MEDS: ELIQUIS 5 MG PO ×2 (08:00→20:11)
[2024-07-07] MEDS: ZESTRIL 40 MG PO (08:00)
[2024-07-07] MEDS: TOPROL XL 25 MG PO (08:00)
[2024-07-07] MEDS: COLACE 100 MG PO ×2 (08:00→20:12)
[2024-07-07] MEDS: ROXICODONE 5 MG PO (08:00)
[2024-07-07] MEDS: ASPIR LOW (ENTERIC COATED) 81 MG PO (08:00)
[2024-07-07] MEDS: MIRALAX 17 GRAMS PO (08:01)
[2024-07-07] MEDS: DULCOLAX 10 MG RECTAL (10:01)
[2024-07-07 11:10] VITALS: BP 132/68
--- NOTE | 2024-07-07 11:15 | CM ---
Addendum entered by Mary Sharma 07/07/24 14:32:
referral to [facility] was accepted
Original Note:
Met with patient at bedside; discussed discharge planning
Patient reported that she has friends available to provide assistance if needed and that a friend will transport home
Explained that PT recommended home health for PT; agency options identified; preference is [facility]; referral sent with [facility]
Plan: discharge to home today with Home Health services for PT
--- NOTE | 2024-07-07 11:17 | PN.CDI ---
CDI
- -
CDI:
Physician Documentation Request
Admit Date: 07/04/24 06:09
Dear Darya VANG,
Patient admitted with juxtarenal abdominal aortic aneurysm s/p percutaneous fenestrated aortic stent graft repair.
07/04 Hgb 11.4
07/06 Hgb 9.0
Based on the above, could you clarify, in your progress note, which of the following is the most likely diagnosis you are evaluating, monitoring and/or treating?
Acute blood loss anemia
Insignificant abnormal lab finding
Other
Use of terms such as suspected, likely, concern for, or probable (associated with a specific diagnosis that is being evaluated, monitored, or treated as if it exists) are acceptable and can be coded in the inpatient setting, when documented at the
time of discharge.
Thank you,
Freya ELLISON,RN,CCDS
CDI Specialist
Available via tiger text
Please use your independent medical judgment in providing your response.
[2024-07-07 15:05] VITALS: BP 107/67
--- NOTE | 2024-07-07 16:42 | W.DS.TRANS ---
DC Summary - Senior Financial Reporting Accountant
-
Discharge Instructions:
Discharge Diagnosis/Procedures Fenestrated EVAR
Diet No restrictions
Activity No strenuous activity
Driving Restrictions No driving for 1 week
Bathing Restrictions OK to Shower
Instructions:
Stand-Alone Forms: DC Instr - Vascular OR
Changes to Home Medications: Yes
Discharge Medications:
DC Medications w/original date entered in [employer]
apixaban 5 mg tablet (Eliquis) 5 mg PO BID Blood Clot Prevention/Tx 05/05/24
aspirin 81 mg tablet,delayed release 81 mg PO DAILY Blood Clot Prevention/Tx 05/05/24
cetirizine 10 mg tablet 10 mg PO DAILY Allergies 05/05/24
furosemide 20 mg tablet 20 mg PO DAILY Fluid Retention/Swelling 05/05/24
metoprolol succinate 25 mg tablet,extended release 24 hr 25 mg PO DAILY Blood Pressure 05/05/24
nifedipine 30 mg tablet,extended release 24 hr 30 mg PO DAILY Blood Pressure 05/05/24
pantoprazole 40 mg tablet,delayed release 40 mg PO DAILY Gastrointestinal Issue 05/05/24
rosuvastatin 20 mg tablet 20 mg PO QPM High Cholesterol 05/05/24
sotalol 80 mg tablet 40 mg PO BID Arrhythmia 05/05/24
triamcinolone acetonide 0.025 % topical cream 1 applic topical BID PRN leg rash 05/05/24
lisinopril 40 mg tablet 40 mg PO DAILY Blood Pressure 06/15/24
diphenhydramine HCl 50 mg capsule 50 mg NOW 07/04/24
docusate sodium 100 mg capsule 100 mg PO PRN PRN constipation #20 caps 07/07/24
oxycodone 5 mg tablet 5 mg PO Q4HPRN PRN moderate pain #5 tabs 07/07/24
Home Medication Changes
Added Colace
Added Roxicodone for pain management
Pending Results: No
[2024-07-07] MEDS: CRESTOR 20 MG PO (18:20)
--- NOTE | 2024-07-07 18:32 | PTCARENOTE ---
Patient tele monitor alerting for R on T PVCs this AM. Darya Wisdom NP made aware. EKG obtained as ordered.
--- NOTE | 2024-07-07 18:34 | PTCARENOTE ---
Tap water enema done as ordered with no results. Patient could only tolerate about 250 ml. Patient has hemorrhoids and had mild bleeding with the enema. Darya Wisdom NP made aware.
[2024-07-07 19:05] VITALS: BP 145/58
[2024-07-07 22:59] VITALS: BP 159/68
[2024-07-08 02:53] VITALS: BP 142/70
[2024-07-08 06:41] LABS: Hemoglobin 9.3 g/dL (12.0-16.0); Mean Corp Hgb Conc. 33.2 g/dL (33.0-37.0); Mean Corpuscular Hgb 30.1 pg (27.0-31.0); Mean Corpuscular Volume 90.6 fL (81.0-99.0); Mean Platelet Volume 10.3 fL (7.4-10.4); Platelet Count 148 10^3/uL (130-400); Red Blood Cell Count 3.09 10^6/uL (4.20-5.40); Red Cell Dist. Width 12.7 % (11.5-14.5); White Blood Cell Count 7.5 10^3/uL (4.8-10.8)
[2024-07-08 07:07] LABS: Blood Urea Nitrogen 25 mg/dl (7-17); Calcium 8.7 mg/dl (8.4-10.2); Carbon Dioxide 32 mmol/L (22-30); Chloride 100 mmol/L (98-107); Estimated Creatinine Clearance 63 ml/min; Glucose 108 mg/dl (70-99); Potassium 4.5 mmol/L (3.5-5.1); Sodium 141 mmol/L (135-145); eGFR > 60.00
[2024-07-08 07:35] VITALS: BP 161/55
[2024-07-08] MEDS: PROCARDIA XL (EXTENDED RELEASE) 30 MG PO (09:06)
[2024-07-08] MEDS: ASPIR LOW (ENTERIC COATED) 81 MG PO (09:06)
[2024-07-08] MEDS: BETAPACE 40 MG PO (09:06)
[2024-07-08] MEDS: MIRALAX 17 GRAMS PO (09:06)
[2024-07-08] MEDS: PROTONIX 40 MG PO (09:06)
[2024-07-08] MEDS: ZESTRIL 40 MG PO (09:07)
[2024-07-08] MEDS: COLACE 100 MG PO (09:07)
[2024-07-08] MEDS: ELIQUIS 5 MG PO (09:07)
[2024-07-08] MEDS: TOPROL XL 25 MG PO (09:08)
[2024-07-08] MEDS: ZYRTEC 10 MG PO (09:08)
[2024-07-08] MEDS: LASIX 20 MG PO (09:19)
--- NOTE | 2024-07-08 09:56 | W.PN.VS ---
Today's Communication / Plan
-
See plan below for today 07/08/2024.
Assessment/Plan
-
Assessment: 74-year-old female POD #4 FE
Plan:
Discharge home today.
-
Total Time Spent with Patient (in minutes): 8
Subjective Data
-
Date of Service: July 08, 2024
No significant complaints this morning. She notes she has started moving her bowels. Feels better.
Objective Data
-
Vital Signs
Temp Pulse Resp BP Pulse Ox
97.3 F 67 18 161/55 97
07/08/24 07:35 07/08/24 09:08 07/08/24 07:35 07/08/24 09:08 07/08/24 07:35
Intake and Output
07/07/24 07/08/24 07/09/24
06:59 06:59 06:59
Intake Total 480 / 480 540 / 540
Balance 480 / 480 540 / 540
Intake:
Oral fluids 480 / 480 540 / 540
Other:
Number of approximated MODERATE 2 3
amounts of urine
Lab Results
07/08/24 06:16
07/08/24 06:16
Calcium 8.7 mg/dl (8.4-10.2) 07/08/24 06:16
Magnesium 2.1 mg/dl (1.6-2.3) 07/04/24 11:43
Physical Exam
-
Afebrile.
Awake and alert.
Abdomen soft, nondistended, nontender.
Groins flat bilaterally. Small incisions clean dry and intact bilaterally.
Feet warm.
Labs reviewed.
--- NOTE | 2024-07-08 10:08 | CM ---
Per Chasity, pt has been accepted by [facility] for [facility].
[2024-07-08 11:00] VITALS: BP 124/50
--- NOTE | 2024-07-10 07:20 | W.PN.UPDATE ---
Update Note
Progress Note Update
CDI:
Physician Documentation Request
Admit Date: 07/04/24 06:09
Patient admitted with juxtarenal abdominal aortic aneurysm s/p percutaneous fenestrated aortic stent graft repair.
07/04 Hgb 11.4
07/06 Hgb 9.0
Based on the above, could you clarify, in your progress note, which of the following is the most likely diagnosis you are evaluating, monitoring and/or treating?
Insignificant abnormal lab finding, hgb began to rebound the following morning. monitored throughout stay with no need for treatment
== END 2024-07-08 14:15 | disposition home health service (06) | DRG 269 ==
LOC: 2 SOUTH 06:09
PROVIDERS: Nurse Practitioner; Nurse Practitioner Acute Care; ADMITTING PHYSICIAN Surgery Vascular Surgery; CONSULT PHYSICIAN Internal Medicine Critical Care Medicine; FAMILY PHYSICIAN Nurse Practitioner Adult Health
PROC: 04V03EZ Restriction of Abdominal Aorta with Branched or Fenestrated Intraluminal Device, One or Two Arteries, Percutaneous Approach (ICD-10-PCS; 2024-07-04)
DX: I71.42 Juxtarenal abdominal aortic aneurysm, without rupture (principal); I25.10 Atherosclerotic heart disease of native coronary artery without angina pectoris; I48.91 Unspecified atrial fibrillation; I11.0 Hypertensive heart disease with heart failure; E78.00 Pure hypercholesterolemia, unspecified; G47.33 Obstructive sleep apnea (adult) (pediatric); I70.8 Atherosclerosis of other arteries; I27.20 Pulmonary hypertension, unspecified; I50.9 Heart failure, unspecified; M48.061 Spinal stenosis, lumbar region without neurogenic claudication; I65.29 Occlusion and stenosis of unspecified carotid artery; R73.03 Prediabetes; Z79.01 Long term (current) use of anticoagulants; Z79.82 Long term (current) use of aspirin; Z79.899 Other long term (current) drug therapy; Z87.891 Personal history of nicotine dependence
CPT/HCPCS: 36415; 71045; 71046; 80048; 82962; 83735; 85025; 85027; 85610; 85730; 86850; 86900; 86901; 87070; 93005; 93930; 97162; C1725; C1760; C1769; C1874; C1887; C1894; C2628; C9764; Q9967

== ENCOUNTER → 2024-08-08 15:44 | Outpatient (REF) | payer OTHER, SELFPAY | LOC: RAD 15:44 | PROVIDERS: ATTENDING PHYSICIAN Physician Assistant; FAMILY PHYSICIAN Nurse Practitioner Adult Health | DX: I71.40 Abdominal aortic aneurysm, without rupture, unspecified (principal) | CPT/HCPCS: 74174; Q9967 ==

== ENCOUNTER 2025-09-05 07:34 | Outpatient (RCR) | payer OTHER, SELFPAY ==
[2025-09-05] MEDS: SODIUM BICARBONATE 1150 MEQ IV (08:00)
[2025-09-05 08:21] VITALS: BP 132/52
[2025-09-05 09:47] VITALS: BP 146/47
[2025-09-05 13:45] VITALS: BP 152/55
== END 2025-09-16 23:59 | disposition home or self-care (01) ==
LOC: OID 07:34
PROVIDERS: ATTENDING PHYSICIAN Surgery Vascular Surgery
DX: I71.40 Abdominal aortic aneurysm, without rupture, unspecified (principal)
CPT/HCPCS: 96365; 96366

== ENCOUNTER → 2025-09-05 07:39 | Outpatient (REF) | payer OTHER, SELFPAY | LOC: RAD 07:39 | PROVIDERS: ATTENDING PHYSICIAN Surgery Vascular Surgery; FAMILY PHYSICIAN Nurse Practitioner Adult Health | DX: I71.40 Abdominal aortic aneurysm, without rupture, unspecified (principal) | CPT/HCPCS: 74174; Q9967 ==